=== PATIENT | male | born 1935 | race Two or more races ===

== ENCOUNTER 2020-03-09 02:01 | Emergency (ER) | payer MEDICARE, BC ==
[~2020-03-09] VITALS: Ht 180.3 cm; Wt 113.4 kg
[2020-03-09] MEDS ORDERED: GELATIN SPONGE,ABSORBABLE 1 SPONGE SPONGE TP ONE (02:16)
[2020-03-09] MEDS: GELATIN SPONGE,ABSORBABLE 1 SPONGE SPONGE TP ONE (02:23)
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
--- NOTE | 2020-03-09 02:36 | NUR ---
PATIENT IS ON ELIQUIS, LAST TAKEN YESTERDAY MORNING.
--- NOTE | 2020-03-09 02:37 | NUR ---
SPOKE WITH (ANTONI) AND SON (NILDA)
--- NOTE | 2020-03-09 03:12 | NUR ---
Patient discharged to home in stable condition. Written and verbal after care instructions given. Patient verbalizes understanding of instruction. Son picked patient up.
[2020-03-09 03:13] VITALS: BP 108/71
== END 2020-03-09 03:13 | disposition home or self-care (01) ==
LOC: ER 02:01
DX: I83.892 Varicose veins of left lower extremity with other complications (principal); I10 Essential (primary) hypertension
CPT/HCPCS: 99283; A6403